=== PATIENT | female | born 1995 | race Caucasian/White ===

== ENCOUNTER 2019-06-04 20:36 | Emergency (ER) | payer SELFPAY ==
[~2019-06-04] VITALS: Ht 167.6 cm; Wt 81.6 kg
[2019-06-04] MEDS ORDERED: ONDANSETRON HCL 4 MG/2 ML VIAL IV ONE (21:30)
[2019-06-04] MEDS ORDERED: IOHEXOL 300 MG/ML 100ML BOTTLE IJ ONE (21:30)
[2019-06-04] MEDS ORDERED: MORPHINE SULFATE 4 MG/ML SYR/VIAL IV ONE (21:30)
[2019-06-04] MEDS ORDERED: SODIUM CHLORIDE 0.9% 1,000 ML IV ONE (22:15)
[2019-06-04] MEDS ORDERED: MORPHINE SULF INJ 2 MG/ML SYRINGE 1ML IV ONE (22:15)
[2019-06-04 23:06] LABS: Basophils # (auto) 0 uL; Basophils % (auto) 0.2 % (0.0-2.0); Eosinophils # (auto) 0 uL; Eosinophils % (auto) 0.1 % (0.0-7.0); Hematocrit 40.3 % (36.0-46.0); Hemoglobin 13.7 g/dL (12.2-16.2); Lymphocytes # (auto) 1.4 uL; Mean Corpuscular Hemoglobin 30.7 pg (28.0-32.0); Mean Corpuscular Hgb Conc. 33.9 g/dL (32.0-36.0); Mean Corpuscular Volume 90.5 fL (80.0-100.0); Monocytes # (auto) 0.6 uL; Neutrophils # (auto) 13.3 uL; Neutrophils % (auto) 86.7 % (37.0-80.0); Platelet Count (auto) 196 10^3/uL (140-450); Red Blood Cells 4.45 10^6/uL (4.0-5.20); Red Cell Distribution Width 13.2 % (11.8-14.3); White Blood Cell 15.3 10^3/uL (4.4-10.8)
[2019-06-04 23:23] LABS: Albumin 4.4 g/dL (3.4-5.0); BUN/Creatinine Ratio 7.7; Potassium 3.8 mmol/L (3.5-5.1)
[2019-06-04 23:26] LABS: Bilirubin, Total 0.7 mg/dL (0.2-1.0); Total Protein 8.1 g/dL (6.4-8.2)
[2019-06-04 23:27] LABS: INR 1.01 (0.9-1.15); Partial Thromboplastin Time 28.9 sec (23.64-32.05)
[2019-06-05] MEDS ORDERED: NEOMYCIN-BACITRACIN-POLYM UNITDOSE PKG TOP OINT TOP ONE (01:15)
[2019-06-05 01:25] VITALS: BP 115/70
== END 2019-06-05 02:19 | disposition home or self-care (01) ==
LOC: EDBD 20:36 → ER 20:44
DX: S70.01XA Contusion of right hip, initial encounter (principal); S70.11XA Contusion of right thigh, initial encounter; R51 Headache; W19.XXXA Unspecified fall, initial encounter; Y93.89 Activity, other specified; Y99.8 Other external cause status; Y92.89 Other specified places as the place of occurrence of the external cause
CPT/HCPCS: 36415; 70450; 70486; 72125; 73552; 73562; 74177; 80053; 81025; 85025; 85610; 85730; 96374; 96375; 96376; 99284; J2270; J2405; Q9967